=== PATIENT | female | born 1945 | race Two or more races ===

== ENCOUNTER 2017-08-16 07:00 | Day surgery (SDC) | payer OTHER ==
[~2017-08-16] VITALS: Ht 165.1 cm; Wt 67.1 kg
[~2017-08-16 07:00] MED LIST: ALPRAZOLAM1 M1 PO; AMLODIPINE BESYL5 MG PO; CEFUROXIME500 MG PO; CIPROFLOXACIN750 MG PO; CLONAZEPAM1 MG PO; CODE1TAB37 PO; CRESTOR20 MG PO; DOCUSATE SODIU100 MG PO; GABAPENTIN800 MG PO; KETO10TA2 PO; LOSARTAN-HCTZ1 EAC1 PO; METFORMIN HCL500 MG PO; OMEPRAZOLE20 M1 PO; PERCOCET 5/3251 TAB PO; VASOTEC5 MG PO
[2017-08-17] MEDS ORDERED: DOCUSATE SODIU100 MG PO (08:12)
[2017-08-17] MEDS ORDERED: GABAPENTIN800 MG PO (08:12)
[2017-08-17] MEDS ORDERED: AMOX-CLAV 875-1 EACH PO (08:13)
[2017-08-17] MEDS ORDERED: CLONAZEPAM1 MG PO (08:14)
[2017-08-17] MEDS ORDERED: PERCOCET 5-3251 EACH PO (08:14)
== END 2017-08-17 08:00 | disposition home or self-care (01) ==
LOC: CIR.AMB 07:00 → SURH 07:00 → CIR.AMB 10:00 → SURH 10:00 → EDSTATUS 10:00 → O/R 13:39 → PED 13:39 → CIR.AMB 08-17 08:00 → PED 08-17 15:29
DX: M48.061 Spinal stenosis, lumbar region without neurogenic claudication (principal); M47.26 Other spondylosis with radiculopathy, lumbar region; M51.16 Intervertebral disc disorders with radiculopathy, lumbar region; I10 Essential (primary) hypertension; E11.9 Type 2 diabetes mellitus without complications

== ENCOUNTER 2023-04-18 11:45 | Inpatient (IN) | payer OTHER ==
[~2023-04-18] VITALS: Ht 162.6 cm; Wt 64.0 kg
[~2023-04-18 11:45] MED LIST changes: +AMOX-CLAV 875-1 EACH PO; +PERCOCET 5-3251 EACH PO
[2023-04-26] MEDS ORDERED: CEFAZOLIN SODIUM 1,000 MG VIAL ONE (07:28)
[2023-04-26] MEDS ORDERED: HEMOSTATIC MATRIX 1 KIT KIT TOP ONE (07:28)
[2023-04-26] MEDS ORDERED: METHYLPREDNISOLONE SOD SUCC 125 MG VIAL ONE (07:28)
[2023-04-26] MEDS ORDERED: VANCOMYCIN HCL 1,000 MG VIAL ONE (07:28)
[2023-04-26] MEDS ORDERED: PERCOCET 5-3251 EACH PO (07:29)
[2023-04-26] MEDS ORDERED: MEDROLPACK PO (07:30)
[2023-04-26] MEDS ORDERED: AMOX-CLAV 875-1 EACH PO (07:30)
[2023-04-26] MEDS ORDERED: NEURONTIN800 MG PO (07:31)
[2023-04-26] MEDS ORDERED: COLACE100 MG PO (07:31)
[2023-04-26] MEDS ORDERED: GABAPENTIN100 M2 PO (07:31)
[2023-04-26] MEDS ORDERED: 0.9 % SODIUM CHLORIDE 1,000 ML IV SCH (07:45)
[2023-04-26] MEDS ORDERED: ENALAPRILAT DIHYDRATE 1.25 MG/ML VIAL IV PRN (07:45)
[2023-04-26] MEDS ORDERED: PROMETHAZINE HCL 50 MG/ML AMPUL IM PRN (07:45)
[2023-04-26] MEDS ORDERED: IOVERSOL 320 MG/ML - 50 ML VIAL IV ONE ×2 (07:50→10:00)
[2023-04-26] MEDS ORDERED: LIDOCAINE HCL 1% 200MG/20ML VIAL IJ ONE ×2 (08:27→10:00)
[2023-04-26] MEDS ORDERED: BUPIVACAINE HCL/PF 0.5% 30ML ML ONE (08:27)
[2023-04-26] MEDS ORDERED: METHYLPREDNISOLONE ACETATE 80 MG/ML VIAL ONE (08:36)
[2023-04-26] MEDS ORDERED: MORPHINE SULFATE 4 MG/ML VIAL IV SCH (09:00)
[2023-04-26] MEDS ORDERED: VANCOMYCIN HCL 1,000 MG VIAL IV ONE (10:00)
[2023-04-26] MEDS ORDERED: METHYLPREDNISOLONE ACETATE 80 MG/ML VIAL IJ ONE (10:00)
[2023-04-26] MEDS ORDERED: BUPIVACAINE HCL 30 ML VIAL IJ ONE (10:00)
[2023-04-26] MEDS ORDERED: METHYLPREDNISOLONE SOD SUCC 125 MG VIAL IV ONE ×2 (10:00)
[2023-04-26] MEDS ORDERED: CEFAZOLIN SODIUM 1,000 MG VIAL IV ONE (10:00)
[2023-04-26] MEDS ORDERED: VANCOMYCIN HCL 1,000 MG VIAL IR ONE (10:00)
[2023-04-26] MEDS ORDERED: MORPHINE SULFATE 4 MG,MORPHINE SULFATE 2 MG IV SCH (13:00)
[2023-04-26] MEDS ORDERED: INSULIN LISPRO 1,000 UNIT/10 ML UNITS SUBCUTANEO PRN (15:00)
[2023-04-26] MEDS ORDERED: FAMOtidine 20 MG TABLET PO SCH (17:00)
[2023-04-26] MEDS ORDERED: CEFAZOLIN SODIUM 1,000 MG in 0.9 % SODIUM CHLORIDE 50 ML IV SCH (17:00)
[2023-04-26] MEDS ORDERED: MetFORMIN HCL 500 MG TABLET PO SCH (17:00)
[2023-04-26] MEDS ORDERED: DOCUSATE SODIUM 100MG CAP PO SCH (17:00)
[2023-04-26] MEDS ORDERED: METHYLPREDNISOLONE SOD SUCC 125 MG VIAL IV SCH (17:00)
[2023-04-26] MEDS ORDERED: GABAPENTIN 800 MG TABLET PO SCH (21:00)
[2023-04-26] MEDS ORDERED: VANCOMYCIN HCL 1,000 MG VIAL IV SCH (21:00)
[2023-04-27] MEDS ORDERED: SODIUM CHLORIDE 0.45 % 1,000 ML IV SCH
[2023-04-27] MEDS ORDERED: OxyCODONE HCL/APAP UD (PERCOCET) PO PRN (06:01)
[2023-04-27 06:59] LABS: CALCIUM 8.8 mg/dL (8.5-10.1); CREATININE SERUM 0.98 mg/dL (0.55-1.02); GFR 54.6; POTASSIUM 3.95 mEq/L (3.5-5.1)
[2023-04-27 07:13] LABS: HEMATOCRIT 25.9 % (36.0-45.00); MEAN CELL VOLUME 96.8 fL (80.00-100.00); MEAN CORPUSCULAR HGB CONC 33.4 g/dl (32.0-36.0); PLATELET COUNT 251 K/uL (150-450); RED BLOOD COUNT 2.67 M/uL (4.00-6.00); RED CELL DISTRIBUTION WIDTH 13.7 % (11.5-14.5)
[2023-04-27 07:24] LABS: HEMOGLOBIN 8.7 g/dL (12.0-15.00); MEAN CORPUSCULAR HEMOGLOBIN 32.5 pg (27.00-32.0)
[2023-04-27] MEDS ORDERED: LOSARTAN/HYDROCHLOROTHIAZIDE 1 TAB TABLET PO SCH (09:00)
[2023-04-27] MEDS ORDERED: AMLODIPINE BESYLATE 5 MG TABLET PO SCH (09:00)
[2023-04-27] MEDS ORDERED: TAMSULOSIN HCL 0.4 MG CAP PO SCH (09:00)
[2023-04-28] MEDS ORDERED: DIPHENHYDRAMINE HCL 50 MG/ML VIAL 1ML IV ONE (02:45)
[2023-04-28] MEDS ORDERED: LORazepam 2 MG/ML VIAL IV STA (03:08)
[2023-04-28] MEDS ORDERED: HALOPERIDOL LACTATE 5 MG/ML AMPUL IM STA (03:08)
[2023-04-28] MEDS ORDERED: DIPHENHYDRAMINE HCL 50 MG/ML VIAL 1ML IM STA (03:08)
[2023-04-28 10:13] LABS: ABG PH 7.472 (7.35-7.45); ABG PO2 68.7 mmHg (80-100); ABG pCO2 38.2 mmHg (35-45); BASE EXCESS 3.6 mmol/l; BICARBONATE 27.3 mmol/l (23-25); SaO2 94.9 %; Tco2 28.5 mmol/l; puncture site RADIAL RIGHT
[2023-04-28 10:14] LABS: o2 21 %
[2023-04-28 12:23] LABS: allen test SATISFACTORY
[2023-04-28 14:26] LABS: ABG PH 7.444 (7.35-7.45); ABG PO2 101.6 mmHg (80-100); ABG pCO2 40.4 mmHg (35-45); BASE EXCESS 2.8 mmol/l; BICARBONATE 27.1 mmol/l (23-25); SaO2 98.1 %; Tco2 28.3 mmol/l; allen test SATISFACTORY; puncture site RADIAL RIGHT
[2023-04-28 14:27] LABS: o2 32 %
== END 2023-04-28 16:09 | disposition home or self-care (01) | DRG 455 ==
LOC: PED 04-26 05:26 → O/R 04-26 05:26 → SURH 04-26 07:00 → PED 04-26 11:39 → SURH 04-26 11:45 → PED 04-28 16:09
PROVIDERS: Internal Medicine; ADMIT Orthopaedic Surgery Orthopaedic Surgery of the Spine; ATTEND Orthopaedic Surgery Orthopaedic Surgery of the Spine
PROC: 0SG3071 Fusion of Lumbosacral Joint with Autologous Tissue Substitute, Posterior Approach, Posterior Column, Open Approach (ICD-10-PCS; 2023-04-26)
PROC: 0ST40ZZ Resection of Lumbosacral Disc, Open Approach (ICD-10-PCS; 2023-04-26)
PROC: 0QB30ZZ Excision of Left Pelvic Bone, Open Approach (ICD-10-PCS; 2023-04-26)
PROC: 07DR0ZZ Extraction of Iliac Bone Marrow, Open Approach (ICD-10-PCS; 2023-04-26)
PROC: 4A1104G Monitoring of Peripheral Nervous Electrical Activity, Intraoperative, Open Approach (ICD-10-PCS; 2023-04-26)
PROC: 0SG30A0 Fusion of Lumbosacral Joint with Interbody Fusion Device, Anterior Approach, Anterior Column, Open Approach (ICD-10-PCS; principal; 2023-04-26 07:00)
DX: M43.07 Spondylolysis, lumbosacral region (principal); M54.17 Radiculopathy, lumbosacral region; M96.1 Postlaminectomy syndrome, not elsewhere classified
CPT/HCPCS: 70496; 71275

== ENCOUNTER → 2023-05-09 | Emergency (ER) | payer OTHER ==
[~2023-05-09] VITALS: Ht 162.6 cm; Wt 64.0 kg
[~2023-05-09] MED LIST changes: +COLACE100 MG PO; +GABAPENTIN100 M2 PO; +KETOROLAC TROMETHAMINE 60 MG VIAL IM ONE; +MEDROLPACK PO; +NEURONTIN800 MG PO
== END | disposition home or self-care (01) ==
LOC: ER 10:12
DX: M54.9 Dorsalgia, unspecified (principal); Z98.1 Arthrodesis status; I10 Essential (primary) hypertension; E11.9 Type 2 diabetes mellitus without complications; Z79.84 Long term (current) use of oral hypoglycemic drugs
CPT/HCPCS: 96372; 99282; J1885